=== PATIENT | male | born 1990 | race Caucasian/White ===

== ENCOUNTER 2019-07-04 19:19 | Emergency (ER) | payer MEDICARE, MEDICAID, SELFPAY ==
[2019-07-04 20:14] VITALS: BP 118/68; PULSE 102; RESP 18; TEMP 36.6; O2SAT 97; BMI 24.0
--- NOTE | 2019-07-04 20:42 | ED_ITS ---
Entered by Nannette Mcmillan, acting as scribe for Jul 04, 2019 19:19 HPI - General Adult General: Chief complaint: General Medical Stated complaint: OUT OF MEDS Time Seen by Provider: 07/04/19 20:38 Source: patient Mode of arrival: ambulatory Limitations: no limitations History of Present Illness: HPI narrative: 28 yo male presents with being out of his medication- Amphetamin 15 mg. pt states he was at his PCP but they could not fill his medications for 3 weeks. pt states he just needs his medications filled or to help him get by. pt denies any other symptoms at this time. MD complaint: out of medication Associated symptoms: Deny chest pain, dyspnea, headache(s), nausea, rash or vomiting Review of Systems Const: Denies: fever or chills Eyes: Denies: change in vision ENMT: Denies: throat pain or mouth pain Card: Denies: chest pain Resp: Denies: shortness of breath GI: Denies: abdominal pain, nausea, vomiting or diarrhea Musc: Denies: back pain or joint pain Skin/Breast: Denies: rash Neuro: Denies: headache or behavioral changes Psych: Denies: depression Endo: Denies: excessive urination Xavier/Lymph: Denies: easy bruising All/Imm: Denies: hives PFSH ED PFSH: Statuses (acute, chronic, etc) shown below reflect problem list status as previously entered and may not be historically accurate Social History Smoking and tobacco status: current every day smoker Current gender identity: Male Physical Exam Const: COMMON NORMALS: no apparent distress and healthy appearing HENMT: COMMON NORMALS: normocephalic and external nose normal HEAD & SCALP: normocephalic NOSE: external nose normal and no nasal discharge (nasal dischage) Eye: COMMON NORMALS: PERRL PUPIL: Yes PERRL Neck/C-Spine: COMMON NORMALS: full ROM and no lymphadenopathy Chest: COMMONS NORMALS: inspection of chest normal Resp: COMMON NORMALS: normal respiratory effort and clear to auscultation bilaterally AUSCULTATION: clear to auscultation bilaterally Cardio: COMMON NORMALS: regular rate and regular rhythm RATE: regular rate RHYTHM: regular rhythm GI: COMMON NORMALS: soft to palpation PALPATION: Yes soft Extremity: COMMON NORMALS: normal to inspection, full ROM and normal capillary refill Psych: COMMON NORMALS: mental status grossly normal and cooperative Skin: COMMON NORMALS: no rashes or lesions noted GENERAL SKIN EXAM: no rashes or lesions noted Course Vital Signs: Vital signs: Vital Signs Temperature 97.8 F 07/04/19 20:14 Pulse Rate 102 H 07/04/19 20:14 Respiratory Rate 18 07/04/19 20:14 Blood Pressure 118/68 07/04/19 20:14 Pulse Oximetry 97 07/04/19 20:14 MDM - General Adult MDM Narrative: Medical decision making narrative: Patient presents here requesting a med refill. Patient is wanting a refill of his Adderall which I informed him I cannot refill is that is scheduled to and he needs to have his primary care doctor refill it. We will write him Vistaril for anxiety. Patient is stable for discharge. Discharge Plan Discharge Patient Disposition: Home, Self-Care Clinical Impression: Medication refill Condition: Stable Prescriptions: New hydroxyzine HCl 25 mg tablet 25 mg PO Q8H PRN (Reason: anxiety) Qty: 20 RF: 0 No Action Adderall 15 mg tablet 15 mg PO DAILY RF: 0 Discharge Orders: Discharge Order (Routine); Ordered 07/04/19 Ordered By: Salina Bowling Referrals: Vida Perez MD [Primary Care Provider] - 1-3 days Discharge Diet: Advance as tolerated Discharge Activity: Resume usual activity Coding Level of Care Code ED Telegraph Lineman for Chg Fwd The documentation recorded by the Hipolito kelly Bridget Annette, accurately reflects the service I personally performed and the decisions made by me, Salina Bowling MD Jul 04, 2019 19:19
[2019-07-04 21:47] VITALS: BP 129/74; PULSE 97; RESP 16; O2SAT 97
== END 2019-07-04 21:48 | disposition home or self-care (01) ==
PROVIDERS: Emergency Provider Emergency Medicine; Family Provider Family Medicine; PCP Family Medicine
DX: Z76.0 Encounter for issue of repeat prescription (principal); F17.210 Nicotine dependence, cigarettes, uncomplicated
CPT/HCPCS: 99281

== ENCOUNTER 2022-05-30 21:50 | Emergency (ER) | payer MEDICARE, MEDICAID, SELFPAY ==
[2022-05-30 21:55] VITALS: BP 130/74; PULSE 109; RESP 17; TEMP 36.7; O2SAT 94; BMI 25.8
[2022-05-31 00:01] VITALS: BP 144/88; PULSE 104; RESP 16; O2SAT 96
[2022-05-31 00:24] LABS: Basophils # 0.1 10^3/uL (0.0-0.1); Basophils % 0.6 %; Eosinophils # 0.1 10^3/uL (0.0-0.8); Eosinophils % 1.6 %; Hematocrit 45.7 % (42.0-52.0); Hemoglobin 16.1 g/dL (11.7-16.6); Lymphocytes # 1.9 10^3/uL (0.8-4.8); Lymphocytes % 23.2 %; Mean Corpuscular HGB Conc 35.2 g/dL (30.0-36.0); Mean Corpuscular Hemoglobin 34.5 pg (28.0-34.0); Mean Corpuscular Volume 98.1 fl (80-94); Mean Platelet Volume 9.7 fL (7.4-10.4); Monocytes # 0.5 10^3/uL (0.2-0.9); Monocytes % 5.8 %; Neutrophils # 5.48 10^3/uL (1.8-7.7); Neutrophils % 67.9 %; Nucleated Red Blood Cells % 0 %; Platelet Count 262 10^3/cmm (130-400); Red Blood Count 4.66 10^6/uL (4.1-5.3); Red Cell Distribution Width 12.5 % (12.1-15.1); White Blood Count 8.1 10^3/uL (4.0-10.0)
[2022-05-31 00:30] LABS: Add Urine Microscopic? NO; Charge for UA Resulting for Rev
[2022-05-31] MEDS: ketorolac 30 mg/mL INJ 15 MG IVP (00:31)
[2022-05-31] MEDS: ondansetron 2 mg/ML SDV 2 mL 4 MG IVP (00:31)
[2022-05-31 00:45] LABS: Bilirubin Urine Neg (Negative); Blood Urine Neg (Negative); Glucose Urine UA Norm (Normal); Ketones Urine Negative (Negative); Leukocyte Esterase Urine Negative (Negative); Nitrate Urine Negative (Negative); Protein Urine Neg (Negative); Specific Gravity, Urine 1.015 (1.005-1.030); Urine Appearance Clear (CLEAR); Urine Color Yellow (Yellow); Urobilinogen Urine Neg (Negative); pH Urine 5 (5-7)
[2022-05-31 00:50] LABS: Amphetamines Screen Urine Negative (Negative); Barbiturates Screen Urine Negative (Negative); Benzodiazepines Screen Urine Negative (Negative); Cocaine Screen Urine Negative (Negative); Opiate Screen Urine Negative (Negative); PCP Screen Urine Negative (Negative); THC Screen Urine Negative (Negative)
[2022-05-31 00:53] LABS: Alanine Aminotransferase 24 U/L (0-41); Albumin Level 4.4 g/dL (3.5-5.2); Alkaline Phosphatase 72 U/L (40-130); Anion Gap 16.9 (5-19); Aspartate Amino Transferase 23 U/L (0-40); Blood Urea Nitrogen 6 mg/dL (6-20); Calcium 9.4 mg/dL (8.5-10.5); Carbon Dioxide 21 mmol/L (22-29); Chloride 101 mmol/L (98-107); Globulin 3.4 g/dL (1.3-4.6); Glomerular Filtration Rate 129.9 mL/min (90-130); Glucose 115 mg/dL (65-115); Lipase 18 U/L (13-60); Osmolality Calculated 279 mOsm/kg (285-295); Potassium 3.9 mmol/L (3.5-5.1); Sodium 135 mmol/L (136-145); Total Bilirubin 0.2 mg/dL (0.15-1.2); Total Protein 7.8 g/dL (6.6-8.7)
[2022-05-31 01:00] VITALS: BP 133/82; PULSE 89; RESP 18; O2SAT 98
--- NOTE | 2022-05-31 01:01 | XRR_ITS ---
PROCEDURE INFORMATION: Exam: XR Abdomen Exam date and time: 05/31/2022 1:28 AM Age: 31 years old Clinical indication: Abdominal tenderness and nausea and vomiting; Additional info: Abd pain with fever, nausea vomiting TECHNIQUE: Imaging protocol: Radiologic exam of the abdomen. Views: Frontal supine view of the abdomen. 1 View. COMPARISON: No relevant prior studies available. FINDINGS: Gastrointestinal tract: Moderate colonic fecal volume. Negative for bowel obstruction. Bones/joints: Unremarkable. XR/XR KUB portable [id number] IMPRESSION: 1. Constipation. 2. No focal acute abdominal pathology identified.
[2022-05-31 02:13] VITALS: BP 119/78; PULSE 92; RESP 18; O2SAT 98
--- NOTE | 2022-05-31 17:08 | ED_ITS ---
HPI - Abdominal Pain General: Chief Complaint: Abdominal Pain Stated Complaint: n/v/d x 2 wks, cough Time Seen by Provider: 05/31/22 00:01 Source: patient History of Present Illness: 31 year old male with a history of abdominal pain, vomiting, and diarrhea. He's had this for several days. His belly pain is improved currently. No fever. No blood in the stool. He has had this once before, treated with medication, but it's been a couple of years. MD elicited complaint: abdominal pain Pertinent past history: other Onset (ago): day(s) Pain Consistency: intermittent Location: Epigastric Radiation: none Migration to: no migration Exacerbating factors: nothing Relieving factors: nothing Associated Symptoms: Reports nausea and vomiting; Denies chills, fever(s) and hematochezia Review of Systems Const: Denies: fever(s) or chills ENMT: Denies: throat pain Card: Denies: chest pain or palpitations Resp: Denies: dyspnea, productive cough or non-productive cough GI: Reports: abdominal pain, nausea and vomiting; Denies: hematochezia PFS ED PFSH: Medical History (Updated 05/31/22 @ 01:56 by Bhupinder Mcgarry DO) ADHD PRESTON (generalized anxiety disorder) Social History Smoking and tobacco status: current every day smoker cigarettes Packs smoked per day: 1.5 Years cigarettes smoked: 12 and smokeless tobacco Smokeless tobacco user: chewing tobacco Quit status (tobacco): not considering quitting Second hand smoke exposure: No Smoking risk assessment/counseling performed?: No Alcohol intake: current Alcohol intake frequency: few times a week Desire information about alcohol rehabilitation?: No Counseling given: No Desire information about substance/drug rehabilitation?: No Counseling given: No Current occupational status: employed Current gender identity: Male Physical Exam Const: COMMON NORMALS: no acute distress GENERAL APPEARANCE: cooperative; not ill appearing and not frail appearing HENMT: COMMON NORMALS: normocephalic, atraumatic and Normal external nose present HEAD & SCALP: normocephalic and atraumatic FACE & SINUS: normal facial exam and face symmetric NOSE: Normal external nose present Eye: COMMON NORMALS: Equal, round and reactive pupils present and EOMs intact bilaterally PUPIL: Yes Equal, round and reactive pupils present Neck/C-Spine: GENERAL: Yes trachea midline Chest: CHEST: Yes Symmetrical chest wall rise Resp: COMMON NORMALS: normal respiratory effort, No retractions, No use of accessory muscles and clear to auscultation bilaterally AUSCULTATION: clear to auscultation bilaterally Cardio: COMMON NORMALS: regular rate and regular rhythm RATE: regular rate RHYTHM: regular rhythm GI: COMMON NORMALS: Normal to inspection, nondistended, normoactive bowel s ounds present Extremity: COMMON NORMALS: no pedal edema Neuro: YARIEL COMA SCALE: document GCS findings Yariel coma scale eye opening: Spontaneous Yariel coma scale verbal response: Orientated Yariel coma scale motor response: Obey commands Hobbs coma scale total score: 15 SENSORY EXAM: Yes extremities (intact) Psych: COMMON NORMALS: speech normal SPEECH: Yes normal speech Skin: COMMON NORMALS: no rashes or lesions noted GENERAL SKIN EXAM: no rashes or lesions noted Course Vital Signs: Vital signs: Vital Signs Temperature 98.0 F 05/30/22 21:55 Pulse Rate 92 05/31/22 02:13 Respiratory Rate 18 05/31/22 02:13 Blood Pressure 119/78 05/31/22 02:13 Pulse Oximetry 98 05/31/22 02:13 Oxygen Delivery Me thod 05/31/22 00:01 MDM - Abdominal Pain Medical Decision Making No incidences of vomiting or diarrhea here. His CBC is normal. his BMP is not remarkable. KUB shows Constipation without obstructive pattern. His CRP is 3. Given his lack of tenderness on current exam, and the above, I do not feel advanced imaging is warranted. To return for worsening symptoms. Will treat for gastritis given location of pain and the constipation found on imaging. Lab Data 05/31/22 00:15 05/31/22 00:15 Labs/Radiology: Radiology Impressions KUB X-Ray 05/31/22 01:01 IMPRESSION: 1. Constipation. 2. No focal acute abdominal pathology identified. Laboratory Results WBC 8.1 10^3/uL (4.0-10.0) 05/31/22 00:15 RBC 4.66 10^6/uL (4.1-5.3) 05/31/22 00:15 Hgb 16.1 g/dL (11.7-16.6) 05/31/22 00:15 Hct 45.7 % (42.0-52.0) 05/31/22 00:15 MCV 98.1 fl (80-94) H 05/31/22 00:15 MCH 34.5 pg (28.0-34.0) H 05/31/22 00:15 MCHC 35.2 g/dL (30.0-36.0) 05/31/22 00:15 RDW 12.5 % (12.1-15.1) 05/31/22 00:15 Plt Count 262 10^3/cmm (130-400) 05/31/22 00:15 MPV 9.7 fL (7.4-10.4) 05/31/22 00:15 Neut % (Auto) 67.9 % 05/31/22 00:15 Lymph % (Auto) 23.2 % 05/31/22 00:15 Beadle % (Auto) 5.8 % 05/31/22 00:15 Eos % (Auto) 1.6 % 05/31/22 00:15 Baso % (Auto) 0.6 % 05/31/22 00:15 Neut # (Auto) 5.48 10^3/uL (1.8-7.7) 05/31/22 00:15 Lymph # (Auto) 1.9 10^3/uL (0.8-4.8) 05/31/22 00:15 Beadle # (Auto) 0.5 10^3/uL (0.2-0.9) 05/31/22 00:15 Eos # (Auto) 0.1 10^3/uL (0.0-0.8) 05/31/22 00:15 Baso # (Auto) 0.1 10^3/uL (0.0-0.1) 05/31/22 00:15 Nucleated RBC % (auto) 0 % 05/31/22 00:15 Nucleated RBCs # 0.0 /100WBC 05/31/22 00:15 Sodium 135 mmol/L (136-145) L 05/31/22 00:15 Potassium 3.9 mmol/L (3.5-5.1) 05/31/22 00:15 Chloride 101 mmol/L (98-107) 05/31/22 00:15 Carbon Dioxide 21 mmol/L (22-29) L 05/31/22 00:15 Anion Gap 16.9 (5-19) 05/31/22 00:15 BUN 6 mg/dL (6-20) 05/31/22 00:15 Creatinine 0.7 mg/dL (0.7-1.2) 05/31/22 00:15 GFR Calculation 129.9 mL/min (90-130) 05/31/22 00:15 Glucose 115 mg/dL (65-115) 05/31/22 00:15 Calculated Osmolality 279 mOsm/kg (285-295) L 05/31/22 00:15 Calcium 9.4 mg/dL (8.5-10.5) 05/31/22 00:15 Total Bilirubin 0.2 mg/dL (0.15-1.2) 05/31/22 00:15 AST 23 U/L (0-40) 05/31/22 00:15 ALT 24 U/L (0-41) 05/31/22 00:15 Alkaline Phosphatase 72 U/L (40-130) 05/31/22 00:15 C-Reactive Protein 3.0 mg/L (0.0-4.9) 05/31/22 00:15 Total Protein 7.8 g/dL (6.6-8.7) 05/31/22 00:15 Albumin 4.4 g/dL (3.5-5.2) 05/31/22 00:15 Globulin 3.4 g/dL (1.3-4.6) 05/31/22 00:15 Lipase 18 U/L (13-60) 05/31/22 00:15 Urine Color Yellow (Yellow) 05/31/22 00:15 Urine Appearance Clear (CLEAR) 05/31/22 00:15 Urine pH 5 (5-7) 05/31/22 00:15 Ur Specific [place] 1.015 (1.005-1.030) 05/31/22 00:15 Urine Protein Neg (Negative) 05/31/22 00:15 Urine Glucose (UA) Norm (Normal) 05/31/22 00:15 Urine Ketones Negative (Negative) 05/31/22 00:15 Urine Blood Neg (Negative) 05/31/22 00:15 Urine Nitrate Negative (Negative) 05/31/22 00:15 Urine Bilirubin Neg (Negative) 05/31/22 00:15 Urine Urobilinogen Neg mg/dL (Negative) 05/31/22 00:15 Ur Leukocyte Esterase Negative (Negative) 05/31/22 00:15 Urine Opiates Screen Negative ng/mL (Negative) 05/31/22 00:15 Ur Barbiturates Screen Negative ng/mL (Negative) 05/31/22 00:15 Ur Phencyclidine Scrn Negative ng/mL (Negative) 05/31/22 00:15 Ur Amphetamines Screen Negative ng/mL (Negative) 05/31/22 00:15 U Benzodiazepines Scrn Negative ng/mL (Negative) 05/31/22 00:15 Urine Cocaine Screen Negative ng/mL (Negative) 05/31/22 00:15 U Marijuana (THC) Screen Negative ng/mL (Negative) 05/31/22 00:15 Discharge Plan Discharge Patient Disposition: Home Clinical Impression: Constipation, Gastritis Condition: Stable Prescriptions: New Prevacid 30 mg capsule,delayed release(DR/EC) 30 mg PO DAILY Qty: 30 0RF magnesium citrate Solution 296 ml PO DAILY Qty: 296 0RF No Action hydroxyzine HCl 25 mg tablet 25 mg PO BID PRN (Reason: anxiety) 30 Days Qty: 40 11RF Discharge Orders: Discharge ED (Routine); Ordered 05/31/22 Ordered By: Bhupinder Mcgarry Referrals: Vida Perez MD [Primary Care Provider] - 1-3 days Patient Instructions: Gastritis (ED), Constipation (ED) Activity Restrictions/Additional Instructions: Medication as directed. Return for worsening pain despite treatment, vomiting liquids or medications, blood in the stool or vomit, fever greater than 100, any other concerning symptoms. Coding Level of Care Code ED Ground Systems Engineer for Miriam Lyman
== END 2022-05-31 02:15 | disposition home or self-care (01) ==
PROVIDERS: Emergency Provider Emergency Medicine; PCP Family Medicine
DX: K29.70 Gastritis, unspecified, without bleeding (principal); K59.00 Constipation, unspecified; F17.210 Nicotine dependence, cigarettes, uncomplicated
CPT/HCPCS: 74018; 80053; 80306; 81003; 83690; 85025; 86140; 96374; 96375; 99284; J1885; J2405